=== PATIENT | female | born 1975 | race Caucasian/White ===

== ENCOUNTER 2017-12-26 23:35 | Emergency (ER) | payer MEDICAID ==
[~2017-12-26] VITALS: Ht 170.2 cm; Wt 68.9 kg
[2017-12-26 23:55] VITALS: BP 119/63
--- NOTE | 2017-12-26 23:55 | NUR ---
ASSUMED CARE OF PT AT THIS TIME. C/O RIGHT SHOULDER PAIN S/P MECHANICAL TRIP/FALL. DECREASED ROM NOTED. NO OBVIOUS DEFORMITY. AAOX4 WITH EVEN AND STEADY GAIT; PATIENT STATES PAIN OF 9/10; VSS; PATIENT POSITIONED FOR COMFORT; HOB ELEVATED; BEDRAILS UP X2; BED DOWN. ER MD MADE AWARE OF PT STATUS. WILL CONTINUE TO MONITOR.
[2017-12-27] MEDS ORDERED: KETOROLAC 60 MG/2 ML VIAL IM ONE (00:25)
[2017-12-27 01:10] VITALS: BP 116/64
== END 2017-12-27 01:10 | disposition home or self-care (01) ==
LOC: MED 23:35
DX: M25.511 Pain in right shoulder (principal); F17.210 Nicotine dependence, cigarettes, uncomplicated; W19.XXXA Unspecified fall, initial encounter; Y93.89 Activity, other specified; Y99.8 Other external cause status; Y92.89 Other specified places as the place of occurrence of the external cause
CPT/HCPCS: 73030; 81002; 81025; 99284; J1885; Q0092